=== PATIENT | female | born 1930 | race African-American/Black ===

== ENCOUNTER 2017-12-15 00:13 | Inpatient (IN) | payer OTHER ==
[~2017-12-15] VITALS: Ht 152.4 cm; Wt 56.7 kg
--- NOTE | ~2017-12-15 | EKG ---
[address] [place] [address] ELECTROCARDIOGRAM REPORT Name: ORALIA ROBERSON Room #: 238- ADM IN M.R.#: [id number] Admission: 12/15/17 Attend Phys: Chiki Nolasco Discharge: Date of : [birth year] Report #: [id number] THIS REPORT FOR: //name// [facility] ED Test Date: 2017-12-15 Test Time: 00:57:50 Pat Name: ORALIA ROBERSON Department: Room: 238 Gender: F Log Cooker: BIRGIT : 1930 Requested By: Blaire Shannon Order Number: [id number] MD: Pierre Okeefe Measurements Intervals [place] Rate: 52 P: 68 MS: 142 QRS: -27 QRSD: 152 T: 138 QT: 460 QTc: 428 Interpretive Statements Sinus bradycardia Left bundle branch block No previous ECG available for comparison Electronically Signed On 12-15-2017 8:59:08 CDT by Pierre Okeefe [email or web address] <ELECTRONICALLY SIGNED> By: Pierre Okeefe MD, [facility] 12/15/17 0859 0057 0057 Pierre Okeefe MD, FACC /EPI
--- NOTE | ~2017-12-15 | 2DMMODE ---
[facility] [address] [place] [address] 2 D/M-MODE ECHOCARDIOGRAM Name: ORALIA ROBERSON Room #: 238-P [facility] IN ..#: [id number] Admission: 12/15/17 Attend Phys: Chiki Capps Discharge: Date of : [birth year] Date of Service: 12/15/17 1103 Report #: [id number] THIS REPORT FOR: //name// APPROVED REPORT Study performed: 12/15/2017 10:02:20 EXAM: Comprehensive 2D, Doppler, and color-flow Echocardiogram Patient Location: ICU Room #: [facility] Status: routine BSA: 1.50 HR: 59 bpm BP: 130/54 mmHg Rhythm: NSR Other Information Study Quality: Adequate Indications Bradycardia Chest Pain 2D Dimensions RVDd: 36.42 mm IVSd: 10.64 (7-11mm) LVOT Diam: 21.72 (18-24mm) LVDd: 42.91 mm PWd: 9.66 (7-11mm) Ascending Ao: 34.82 (22-36mm) LVDs: 31.68 (25-40mm) Aortic Root: 35.38 mm IVC: 23.00 mm Volumes Left Atrial Volume (Systole) Single Plane 4CH: 39.28 mL Single Plane 2CH: 56.49 mL LA ESV Index: 37.00 mL/m2 Aortic Valve AoV Peak Lopez.: 1.10 m/s AO Peak Gr.: 4.80 mmHg LVOT Max P.82 mmHg LVOT Max V: 0.84 m/s AZRA Vmax: 2.84 cm2 AI Vmax: 3.26 m/s AI [place]: 1.83 m/s2 AI PHT: 516.95 ms [facility] [place] [address] 2 D/M-MODE ECHOCARDIOGRAM Name: ORALIA ROBERSON Room #: [facility].#: [id number] Admission: 12/15/17 Attend Phys: Chiki Capps Discharge: Date of : [birth year] Date of Service: 12/15/17 1103 Report #: [id number] Mitral Valve E/A Ratio: 0.5 MV Decel. Time: 283.81 ms MV E Max Lopez.: 0.56 m/s MV A Lopez.: 1.17 m/s MV PHT: 82.31 ms IVRT: 226.07 ms Pulmonary Valve PV Peak Lopez.: 0.68 m/s PV Peak Gr.: 1.87 mmHg Pulmonary Vein P Vein S: 0.41 m/s P Vein A: 0.32 m/s P Vein D: 0.21 m/s P Vein A Dur.: 110.7 msec P Vein S/D Ratio: 1.95 Tricuspid Valve TR Peak Lopez.: 2.54 m/s TR Peak Gr.: 25.90 mmHg PA Pressure: 41.00 mmHg Left Ventricle The left ventricle is normal size. There is normal LV segmental wall motion. There is normal left ventricular wall thickness. The left ventricular systolic function is at the lower limits of normal. The left ventricular ejection fraction is within the normal range. LVEF is 50%. Grade I - abnormal relaxation pattern. Right Ventricle The right ventricle is normal size. The right ventricular systolic function is normal. Atria Left atrium is dilated. The right atrium size is normal. Aortic Valve The aortic valve is mildly sclerotic Mild aortic regurgitation. There is no aortic valvular stenosis. Mitral Valve The mitral valve is normal in structure. Mild mitral regurgitation. No evidence of mitral valve stenosis. Tricuspid Valve The tricuspid valve is normal in structure. There is mild tricuspid regurgitation. There is mild-moderate pulmonary [address] [address] 2 D/M-MODE ECHOCARDIOGRAM Name: ORALIA ROBERSON Room #: 238-P [facility] IN [facility].#: [id number] Admission: 12/15/17 Attend Phys: Chiki Capps Discharge: Date of : [birth year] Date of Service: 12/15/17 1103 Report #: [id number] hypertension. Pulmonic Valve The pulmonary valve is normal in structure. Mild pulmonic regurgitation. Great Vessels The aortic root is normal in size. The inferior vena cava is dilated with no inspiratory collapse. Pericardium There is no pericardial effusion. <Conclusion> The left ventricular systolic function is at the lower limits of normal. There is normal LV segmental wall motion. Discordant septal motion LVEF is 50%. Mild diastolic dysfunction The aortic valve is mildly sclerotic. Mild aortic regurgitation. The mitral valve is normal in structure. Mild mitral regurgitation. Pulmonary artery pressure of approximately 30 mmHg There is no pericardial effusion. <ELECTRONICALLY SIGNED> By: Pierre Okeefe MD, FACC 12/15/17 1103 02 110 Pierre Okeefe MD, FACC /INF
[2017-12-15 00:22] VITALS: BP 139/49
[2017-12-15 01:07] LABS: HEMATOCRIT 33.7 % (37.0-47.0); HEMOGLOBIN 11.4 gm/dL (12.0-15.0); MCH 29.2 pg (26.0-34.0); MCHC 33.9 g/dL (28.0-37.0); MCV 86.2 fL (80.0-100.0); PLATELET COUNT 132 thou/uL (150-400); RBC 3.91 mil/uL (4.20-5.00); RDW 15.2 % (10.5-14.5); WBC 3.5 thou/uL (4.0-11.0)
[2017-12-15 01:20] LABS: ANION GAP 6 mmol/L (7-16); BUN 19 mg/dL (7-18); CHLORIDE 103 mmol/L (98-107); CO2 29 mmol/L (21-32); CREATININE 1.4 mg/dL (0.6-1.0); GLUCOSE 80 mg/dL (74-106); POTASSIUM 4.5 mmol/L (3.5-5.1); SODIUM 138 mmol/L (136-145)
[2017-12-15 01:29] LABS: TROPONIN-I <0.06 ng/mL (<0.06)
[2017-12-15 01:34] LABS: ABSOLUTE NEUTROPHILS 1.7 thou/uL (1.4-8.2); LARGE PLATELETS RARE
[2017-12-15 05:30] VITALS: BP 133/52
[2017-12-15 06:01] VITALS: BP 117/41
[2017-12-15 06:31] LABS: CHOLESTEROL 152 mg/dL (<200); HDL CHOLESTEROL 82 mg/dL (>40); LDL CHOLESTEROL 64 mg/dL (<100); TC:HDL 1.9 Ratio (Not establshd); TRIGLYCERIDE 31 mg/dL (<150); VLDL 6 mg/dL (<40)
[2017-12-15 08:01] VITALS: BP 120/54
[2017-12-15 08:13] VITALS: BP 130/54
[2017-12-15] MEDS ORDERED: LOW DOSE ASPIRI81 M1 PO (08:19)
[2017-12-15] MEDS ORDERED: CENTRUM SILVER1 EAC4 PO (08:19)
[2017-12-15] MEDS ORDERED: SPIRONOLACTONE25 MG PO (08:22)
[2017-12-15] MEDS ORDERED: DEPAKOTE DR PO (08:23)
[2017-12-15] MEDS ORDERED: VITAMIN D1000 UNIT PO (08:25)
[2017-12-15] MEDS ORDERED: LIPITOR10 MG PO (08:26)
[2017-12-15] MEDS ORDERED: PACERONE 200 M200 M1 PO (08:26)
[2017-12-15] MEDS ORDERED: PEPCID20 MG PO (08:26)
[2017-12-15] MEDS ORDERED: ZYPREXA 5 MG TAB5 M1 PO (08:27)
[2017-12-15] MEDS ORDERED: TYLENOL325 MG PO (08:27)
== END 2017-12-15 13:16 | DRG 682 ==
LOC: ER 00:13 → ICU 02:15 → EROBS 02:15 → ICU 06:00
PROVIDERS: Emergency Medicine; Nurse Practitioner Acute Care
DX: N17.9 Acute kidney failure, unspecified (principal); G93.41 Metabolic encephalopathy; D61.818 Other pancytopenia; E78.5 Hyperlipidemia, unspecified; F03.90 Unspecified dementia, unspecified severity, without behavioral disturbance, psychotic disturbance, mood disturbance, and anxiety; I50.9 Heart failure, unspecified; N18.3 Chronic kidney disease, stage 3 (moderate); G40.909 Epilepsy, unspecified, not intractable, without status epilepticus; R00.1 Bradycardia, unspecified; Z79.82 Long term (current) use of aspirin; Z79.899 Other long term (current) drug therapy
CPT/HCPCS: 10203